=== PATIENT | female | born 1960 | race African-American/Black ===

== ENCOUNTER 2016-09-11 04:05 | Emergency (ER) | payer MEDICAID ==
[~2016-09-11] VITALS: Ht 170.2 cm; Wt 64.0 kg
[2016-09-11] MEDS ORDERED: PREDNISONE 20MG TABLET PO STA (04:35)
[2016-09-11] MEDS ORDERED: ACETAMINOPHEN WITH CODEINE 300/30MG TABLET PO STA (04:35)
[2016-09-11 04:59] LABS: BASOPHILS % 0.5 % (0.0-2.0); HEMATOCRIT. 39.8 % (36.0-48.0); HEMOGLOBIN. 13.3 g/dL (12.0-16.0); LYMPHOCYTES % 48.8 % (20.0-50.0); MEAN CORPUSCULAR HGB CONC 33.3 g/dL (31.0-37.0); MEAN CORPUSCULAR VOLUME 93.1 fL (81.0-99.0); MONOCYTES % 7.2 % (2.0-8.0); NEUTROPHILS % 37.5 % (40.0-76.0); PLATELET 325 x1000/uL (130-400); RED BLOOD CELL COUNT 4.27 mill/uL (4.2-5.4); RED CELL DISTRIBUTION WIDTH 12.8 % (11.6-14.6); WHITE BLOOD COUNT 5.9 x1000/uL (4.5-11.0)
[2016-09-11 05:08] LABS: ALANINE AMINOTRANSFERASE 17 IU/L (13-61); ALBUMIN 4.2 g/dL (3.4-5.0); ANION GAP 12; CALCIUM 9.1 mg/dL (8.5-10.1); CARBON DIOXIDE 30 mEq/L (21-32); CHLORIDE 106 mEq/L (98-107); INDEX HEMOLYSI 1 (1-3); INDEX ICTERIC 1 (1-4); INDEX LIPEMIC 1 (1-3); UREA NITROGEN BLOOD 9 mg/dL (7-21); eGFR > 60 mL/min (>60)
[2016-09-11] MEDS: ALBUTEROL (0.083%) 2.5MG/3ML NEB HHN SCH ×2 (05:30→06:00)
[2016-09-11 06:20] VITALS: BP 145/91
== END 2016-09-11 06:28 | disposition home or self-care (01) ==
LOC: ER 04:06
DX: J45.901 Unspecified asthma with (acute) exacerbation (principal); Z88.6 Allergy status to analgesic agent; I10 Essential (primary) hypertension; J45.909 Unspecified asthma, uncomplicated
CPT/HCPCS: 36415; 71010; 80053; 85025; 94640; 99285; J7512; J7611; Z7610

== ENCOUNTER 2016-10-31 07:29 | Emergency (ER) | payer MEDICAID ==
[~2016-10-31] VITALS: Ht 160 cm; Wt 55.0 kg
[~2016-10-31 07:29] MED LIST: LISI10TA5 PO
[2016-10-31] MEDS ORDERED: ALBUTEROL (0.083%) 2.5MG/3ML NEB HHN STA (07:47)
[2016-10-31] MEDS ORDERED: METHYLPREDNISOLONE SOD SUCC 125 MG/2 ML VIAL IV STA (07:47)
[2016-10-31] MEDS ORDERED: IPRATROPIUM BROMIDE (0.02%) 0.5MG/2.5ML NEB HHN STA (07:47)
[2016-10-31 08:08] LABS: BASOPHILS % 0.4 % (0.0-2.0); EOSINOPHILS % 4.9 % (0.0-5.0); HEMATOCRIT. 37.3 % (36.0-48.0); HEMOGLOBIN. 12.5 g/dL (12.0-16.0); LYMPHOCYTES % 43.5 % (20.0-50.0); MEAN CORPUSCULAR HEMOGLOBIN 31.4 pg (28.0-32.0); MEAN CORPUSCULAR VOLUME 93.9 fL (81.0-99.0); MONOCYTES % 9.3 % (2.0-8.0); NEUTROPHILS % 41.9 % (40.0-76.0); PLATELET 334 x1000/uL (130-400); RED BLOOD CELL COUNT 3.97 mill/uL (4.2-5.4); RED CELL DISTRIBUTION WIDTH 13.5 % (11.6-14.6)
[2016-10-31 08:24] LABS: CARBON DIOXIDE 32 mEq/L (21-32); CHLORIDE 106 mEq/L (98-107)
[2016-10-31 08:25] LABS: TROPONIN I < 0.02 ng/mL (0.00-0.04)
[2016-10-31 08:34] LABS: INR 0.9; PROTHROMBIN TIME 9.4 sec
[2016-10-31] MEDS ORDERED: HYDROCODONE/ACETAMINOPHEN 5/325MG TABLET PO ONE (09:30)
[2016-10-31 10:41] VITALS: BP 131/83
== END 2016-10-31 12:00 | disposition left against medical advice (07) ==
LOC: ER 07:30
DX: J45.901 Unspecified asthma with (acute) exacerbation (principal); Z76.5 Malingerer [conscious simulation]; I10 Essential (primary) hypertension; I45.10 Unspecified right bundle-branch block; G89.29 Other chronic pain; M54.9 Dorsalgia, unspecified; Z79.899 Other long term (current) drug therapy; Z88.6 Allergy status to analgesic agent; Z88.8 Allergy status to other drugs, medicaments and biological substances
CPT/HCPCS: 36415; 71010; 80053; 83880; 84484; 85025; 85610; 93005; 94644; 96374; 99285; J2930; J7611; Z7610; 94640

== ENCOUNTER 2017-01-14 10:54 | Inpatient (IN) | payer MEDICAID ==
[~2017-01-14] VITALS: Ht 162.6 cm; Wt 63.5 kg
[2017-01-14] MEDS ORDERED: IPRATROPIUM BROMIDE (0.02%) 0.5MG/2.5ML NEB HHN STA (11:36)
[2017-01-14] MEDS ORDERED: METHYLPREDNISOLONE SOD SUCC 125 MG/2 ML VIAL IV STA (11:36)
[2017-01-14 11:47] LABS: BASOPHILS % 0.5 % (0.0-2.0); EOSINOPHILS % 4.5 % (0.0-5.0); HEMATOCRIT. 37.6 % (36.0-48.0); HEMOGLOBIN. 12.7 g/dL (12.0-16.0); LYMPHOCYTES % 39.5 % (20.0-50.0); MEAN CORPUSCULAR HEMOGLOBIN 31.6 pg (28.0-32.0); MEAN CORPUSCULAR VOLUME 93.5 fL (81.0-99.0); MONOCYTES % 8.9 % (2.0-8.0); NEUTROPHILS % 46.6 % (40.0-76.0); PLATELET 334 x1000/uL (130-400); RED BLOOD CELL COUNT 4.02 mill/uL (4.2-5.4); RED CELL DISTRIBUTION WIDTH 12.8 % (11.6-14.6)
[2017-01-14] MEDS: ALBUTEROL (0.083%) 2.5MG/3ML NEB HHN SCH ×3 (11:55→13:38)
[2017-01-14 12:01] LABS: CARBON DIOXIDE 30 mEq/L (21-32); CHLORIDE 105 mEq/L (98-107)
[2017-01-14] MEDS ORDERED: OXYCODONE HCL 5MG TABLET PO ONE (12:30)
[2017-01-14] MEDS ORDERED: ALBUTEROL (0.083%) 2.5MG/3ML NEB HHN STA ×2 (13:26→14:28)
[2017-01-14] MEDS ORDERED: MAGNESIUM 2 G PREMIX 50 ML IV ONE (14:30)
[2017-01-14 16:50] VITALS: BP 145/78
[2017-01-14 17:00] VITALS: BP 145/78
[2017-01-14] MEDS ORDERED: HYDR-519 PO (17:03)
[2017-01-14] MEDS ORDERED: IPRATROPIUM/ALBUTEROL 0.5-3(2.5)MG/3ML NEB HHN PRN (17:30)
[2017-01-14] MEDS: HYDROCODONE/ACETAMINOPHEN 10/325MG TABLET PO PRN (17:49)
[2017-01-14] MEDS: METHYLPREDNISOLONE SOD SUCC 40 MG/ML VIAL IV SCH (17:49)
[2017-01-14 20:10] VITALS: BP 142/80
[2017-01-14] MEDS: LEVOFLOXACIN 500MG PREMIX 100 ML IV SCH (20:10)
[2017-01-14] MEDS: MORPHINE SULFATE 4 MG/ML CPJ (NOT FOR IM USE) IV PRN (20:12)
[2017-01-14] MEDS: PROMETHAZINE/DEXTROMETHORPHAN 6.25-15MG/5ML BOTTLE 120ML PO PRN (20:27)
[2017-01-14] MEDS: IPRATROPIUM/ALBUTEROL 0.5-3(2.5)MG/3ML NEB HHN SCH (20:53)
[2017-01-15] VITALS (7 sets, daily range): BP systolic 113–127; BP diastolic 69–82
[2017-01-15] MEDS: MORPHINE SULFATE 4 MG/ML CPJ (NOT FOR IM USE) IV PRN ×6 (00:35→23:53)
[2017-01-15] MEDS: IPRATROPIUM/ALBUTEROL 0.5-3(2.5)MG/3ML NEB HHN SCH ×8 (00:40→23:49)
[2017-01-15] MEDS: METHYLPREDNISOLONE SOD SUCC 40 MG/ML VIAL IV SCH ×3 (02:36→18:01)
[2017-01-15] MEDS: PROMETHAZINE/DEXTROMETHORPHAN 6.25-15MG/5ML BOTTLE 120ML PO PRN ×2 (04:48→19:53)
[2017-01-15] MEDS: LISINOPRIL 10MG TABLET PO SCH (09:46)
[2017-01-15] MEDS: MONTELUKAST SODIUM 10MG TABLET PO SCH (09:53)
[2017-01-15] MEDS: BUDESONIDE 0.5MG/2ML NEB HHN SCH ×2 (13:15→19:35)
[2017-01-15] MEDS: LEVOFLOXACIN 500MG PREMIX 100 ML IV SCH (19:41)
[2017-01-16] VITALS: BP 122/69
[2017-01-16] MEDS: METHYLPREDNISOLONE SOD SUCC 40 MG/ML VIAL IV SCH ×3 (02:12→17:34)
[2017-01-16] MEDS: IPRATROPIUM/ALBUTEROL 0.5-3(2.5)MG/3ML NEB HHN SCH ×6 (03:55→23:41)
[2017-01-16 04:00] VITALS: BP 131/81
[2017-01-16] MEDS: MORPHINE SULFATE 4 MG/ML CPJ (NOT FOR IM USE) IV PRN ×5 (05:21→21:28)
[2017-01-16 06:49] LABS: BASOPHILS % 0.1 % (0.0-2.0); EOSINOPHILS % 0.3 % (0.0-5.0); HEMATOCRIT. 35.8 % (36.0-48.0); LYMPHOCYTES % 18.1 % (20.0-50.0); MEAN CORPUSCULAR HEMOGLOBIN 31.8 pg (28.0-32.0); MEAN CORPUSCULAR VOLUME 94.5 fL (81.0-99.0); MONOCYTES % 2.5 % (2.0-8.0); PLATELET 305 x1000/uL (130-400); RED BLOOD CELL COUNT 3.79 mill/uL (4.2-5.4)
[2017-01-16 08:00] VITALS: BP 147/95
[2017-01-16] MEDS: MONTELUKAST SODIUM 10MG TABLET PO SCH (09:08)
[2017-01-16] MEDS: LISINOPRIL 10MG TABLET PO SCH (09:09)
[2017-01-16 12:00] VITALS: BP 103/63
[2017-01-16 16:00] VITALS: BP 124/78
[2017-01-16] MEDS: BUDESONIDE 0.5MG/2ML NEB HHN SCH (16:45)
[2017-01-16 20:11] VITALS: BP 102/57
[2017-01-16] MEDS: LEVOFLOXACIN 500MG PREMIX 100 ML IV SCH (20:14)
[2017-01-16] MEDS: LEVOFLOXACIN 500MG TABLET PO SCH (20:20)
[2017-01-17] MEDS: METHYLPREDNISOLONE SOD SUCC 40 MG/ML VIAL IV SCH ×3 (01:57→18:13)
[2017-01-17] MEDS: MORPHINE SULFATE 4 MG/ML CPJ (NOT FOR IM USE) IV PRN ×6 (01:58→22:16)
[2017-01-17 04:00] VITALS: BP 119/71
[2017-01-17] MEDS: IPRATROPIUM/ALBUTEROL 0.5-3(2.5)MG/3ML NEB HHN SCH ×5 (04:15→20:28)
[2017-01-17] MEDS: BUDESONIDE 0.5MG/2ML NEB HHN SCH ×3 (04:15→20:28)
[2017-01-17 07:11] LABS: BASOPHILS % 0.1 % (0.0-2.0); HEMATOCRIT. 35.8 % (36.0-48.0); HEMOGLOBIN. 11.8 g/dL (12.0-16.0); LYMPHOCYTES % 19.5 % (20.0-50.0); MEAN CORPUSCULAR VOLUME 94.1 fL (81.0-99.0); MEAN PLATELET VOLUME 6.9 fl (7.4-10.4); MONOCYTES % 2.9 % (2.0-8.0); NEUTROPHILS % 77.5 % (40.0-76.0); PLATELET 319 x1000/uL (130-400); RED CELL DISTRIBUTION WIDTH 12.9 % (11.6-14.6)
[2017-01-17 08:00] VITALS: BP 101/70
[2017-01-17 08:08] LABS: CARBON DIOXIDE 31 mEq/L (21-32); CHLORIDE 104 mEq/L (98-107)
[2017-01-17] MEDS: LISINOPRIL 10MG TABLET PO SCH (09:00)
[2017-01-17] MEDS: MONTELUKAST SODIUM 10MG TABLET PO SCH (09:48)
[2017-01-17 12:00] VITALS: BP 112/79
[2017-01-17 15:42] VITALS: BP 106/67
[2017-01-17] MEDS: LEVOFLOXACIN 500MG TABLET PO SCH (19:46)
[2017-01-17 20:00] VITALS: BP 121/70
[2017-01-17] MEDS ORDERED: ZOLPIDEM TARTRATE 5MG TABLET PO PRN (20:15)
[2017-01-18] VITALS: BP 106/62
[2017-01-18] MEDS: IPRATROPIUM/ALBUTEROL 0.5-3(2.5)MG/3ML NEB HHN SCH ×4 (00:32→12:07)
[2017-01-18] MEDS: METHYLPREDNISOLONE SOD SUCC 40 MG/ML VIAL IV SCH ×2 (01:12→11:13)
[2017-01-18] MEDS: MORPHINE SULFATE 4 MG/ML CPJ (NOT FOR IM USE) IV PRN ×3 (02:19→12:47)
[2017-01-18 04:00] VITALS: BP 118/72
[2017-01-18] MEDS: BUDESONIDE 0.5MG/2ML NEB HHN SCH (08:33)
[2017-01-18] MEDS: MONTELUKAST SODIUM 10MG TABLET PO SCH (08:52)
[2017-01-18] MEDS: LISINOPRIL 10MG TABLET PO SCH (08:55)
[2017-01-18] MEDS: HYDROCODONE/ACETAMINOPHEN 10/325MG TABLET PO PRN (11:13)
[2017-01-18] MEDS ORDERED: D-ME473S8 PO (11:32)
[2017-01-18] MEDS ORDERED: LISI10TA5 PO (11:32)
[2017-01-18] MEDS ORDERED: HYDR-519 PO (11:32)
[2017-01-18] MEDS ORDERED: LEVO500T2 PO (11:32)
[2017-01-18] MEDS ORDERED: MONT10TA21 PO (11:32)
[2017-01-18] MEDS ORDERED: METH4TAB17 PO (11:33)
[2017-01-18 12:00] VITALS: BP 122/87
[2017-01-18 13:09] VITALS: BP 122/82
== END 2017-01-18 15:15 | disposition home or self-care (01) | DRG 133 ==
LOC: ER 10:54 → 8WST 15:16 → ENRESERV 16:08 → CANRESERV 16:08 → ENRESERV 16:09
PROVIDERS: ADMIT Internal Medicine; ATTEND Internal Medicine
DX: J96.20 Acute and chronic respiratory failure, unspecified whether with hypoxia or hypercapnia (principal); J45.901 Unspecified asthma with (acute) exacerbation; I10 Essential (primary) hypertension; F41.9 Anxiety disorder, unspecified; M54.9 Dorsalgia, unspecified; Z88.6 Allergy status to analgesic agent; Z79.1 Long term (current) use of non-steroidal anti-inflammatories (NSAID); Z79.899 Other long term (current) drug therapy
CPT/HCPCS: 36415; 71010; 76881; 80048; 80053; 85025; 93005; 94640; 94664; 96365; 96375; 99285; J1956; J2270; J2920; J2930; J3475; J7040; J7611; J7620; J7626